=== PATIENT | male | born 1960 | race Hispanic/Latino ===

== ENCOUNTER 2018-01-18 19:50 | Emergency (ER) | payer SELFPAY ==
[~2018-01-18] VITALS: Ht 157.5 cm; Wt 72.7 kg
[2018-01-18] MEDS ORDERED: MOTRIN600 MG PO (23:12)
[2018-01-18] MEDS ORDERED: ROBITUSSIN AC,T10 ML PO (23:12)
[2018-01-18 23:52] VITALS: BP 123/91
== END 2018-01-18 23:53 | disposition home or self-care (01) ==
LOC: EME 19:50
DX: J11.1 Influenza due to unidentified influenza virus with other respiratory manifestations (principal); E11.9 Type 2 diabetes mellitus without complications; F32.9 Major depressive disorder, single episode, unspecified
CPT/HCPCS: 71046; 87502; 94640; 99281; 99284

== ENCOUNTER 2018-03-22 20:40 | Emergency (ER) | payer SELFPAY ==
[~2018-03-22] VITALS: Ht 165.1 cm; Wt 71.9 kg
[~2018-03-22 20:40] MED LIST: MOTRIN600 MG PO; ROBITUSSIN AC,T10 ML PO
[2018-03-22 22:29] LABS: HEMATOCRIT 45.4 % (38.0-50.0); HEMOGLOBIN 15.8 G/DL (12.5-16.6); MCH 31.4 PG (29.0-34.0); MCHC 34.8 G/DL (30.0-36.0); MCV 90.3 FL (86-99); PLATELET COUNT 208 K/uL (156-360); RBC DIS.WIDTH-CV 13.2 % (11.8-14.6); RBC DIS.WIDTH-SD 43.4 % (39-53); RED BLOOD COUNT 5.03 M/uL (4.00-5.50)
[2018-03-22 22:40] LABS: CHLORIDE 104 mEq/L (99-109); POTASSIUM 3.8 mEq/L (3.7-5.4); SODIUM 137 mEq/L (136-147)
[2018-03-22 22:42] LABS: GLUCOSE 133 mg/dL (70-99)
[2018-03-22 22:45] LABS: CREATININE 0.8 mg/dL (0.6-1.3); GFR ESTIMATE (CALCULATED) > 59 mL/min/ (58.99-99999)
[2018-03-22 22:46] LABS: UREA NITROGEN (BUN) 16 mg/dL (9-23)
[2018-03-23 00:22] VITALS: BP 109/78
== END 2018-03-23 00:22 | disposition home or self-care (01) ==
LOC: EME 20:40
PROVIDERS: Physician Assistant
DX: I10 Essential (primary) hypertension (principal); E11.65 Type 2 diabetes mellitus with hyperglycemia; R51 Headache; F32.9 Major depressive disorder, single episode, unspecified
CPT/HCPCS: 70450; 80048; 85027; 99281; 99284; J1885